=== PATIENT | male | born 1955 | race Caucasian/White ===

== ENCOUNTER 2019-10-05 09:22 | Outpatient (CLI) | payer BC, SELFPAY ==
--- NOTE | 2019-10-05 09:43 | CT_ITS ---
WS: [id number] CT CHEST, ABDOMEN AND PELVIS WITH CONTRAST HISTORY: MALIGNANT NEOPLASM OF LARGE INTESTINE TECHNIQUE: Contiguous 5 mm axial imaging performed through the chest, abdomen and pelvis with IV cont rast, oral contrast has been provided. Coronal and sagittal reformats chest. Coronal and sagittal ref ormats through the abdomen and pelvis. All CT scans at [facility] use at least one of the se dose optimization techniques: automated exposure control; mA and/or kV adjustment per patient size (includes targeted exams where dose is matched to clinical indication); or iterative reconstruction. CONTRAST: Omnipaque 300; 95 mL IV. DLP: 1259.58 mGy.cm COMPARISON: 09/06/2018 and 03/09/2018 and 09/07/[address]: Hyperinflated lungs. Long-term stability very small nodules in the RIGHT middle lobe and a calcified nodule in the LEFT upper lobe. There are no suspicious masses. Mild atherosclerosis aorta. Pulmonary artery size is normal. Mild coronary artery atherosclerosis. No pericardial or pleural effu sions. No mediastinal or hilar adenopathy. Abdomen CT: Normal size liver with diffuse hepatic steatosis. Prior cholecystectomy. Normal size sple en, pancreas and negative adrenal glands. Mild cortical thinning and perinephric stranding of each ki dney. No mass or obstruction. Mild atherosclerosis aorta. No mesenteric adenopathy or fluid. Pelvic CT: Mild diffuse constipation. Very mild persistent thickening of the ascending colon as seen on prior studies with no change. No adjacent adenopathy. No free fluid or adenopathy in the pelvis. N egative urinary bladder. Marked increase in thoracic kyphosis. No osteoblastic or osteolytic bone disease. CT/CT chest abd pel w con* IMPRESSION: 1. No evidence for metastatic disease to the chest, abdomen or pelvis. 2. Hepatic steatosis and prior cholecystectomy. 3. Mild wall thickening involving the ascending colon has been stable since 06/2017. 4. No adenopathy in the chest, abdomen or pelvis.
[2019-10-05] MEDS: iohexol 300 mg/mL 50 mL Btl PO (09:58)
[2019-10-05 10:20] LABS: Basophils # 0.1 10^3/uL (0.0-0.1); Basophils % 0.8 %; Eosinophils # 0.3 10^3/uL (0.0-0.8); Eosinophils % 3.6 %; Hematocrit 44.6 % (42.0-52.0); Hemoglobin 15.2 g/dL (11.7-16.6); Lymphocytes # 1.4 10^3/uL (0.8-4.8); Lymphocytes % 19.9 %; Mean Corpuscular HGB Conc 34.1 g/dL (30.0-36.0); Mean Corpuscular Hemoglobin 32.5 pg (28.0-34.0); Mean Corpuscular Volume 95.3 fL (80-94); Mean Platelet Volume 9.9 fL (7.4-10.4); Monocytes # 0.7 10^3/uL (0.2-0.9); Neutrophils # 4.7 10^3/uL (1.8-7.7); Neutrophils % 65.6 %; Nucleated Red Blood Cells % 0 %; Platelet Count 241 10^3/cmm (130-400); Red Blood Count 4.68 10^6/uL (4.1-5.3); Red Cell Distribution Width 11.5 % (12.1-15.1); White Blood Count 7.2 10^3/uL (4.0-10.0)
[2019-10-05 10:44] LABS: Carcinoembryonic Antigen 1.7 ng/mL (0.0-4.7)
[2019-10-05 10:55] LABS: Alanine Aminotransferase 31 U/L (0-41); Albumin Level 4.2 g/dL (3.5-5.2); Alkaline Phosphatase 115 IU/L (40-130); Anion Gap 18.2 (5-19); Aspartate Amino Transferase 31 U/L (0-40); Blood Urea Nitrogen 14 mg/dL (8-23); Calcium 9.9 mg/dL (8.5-10.5); Carbon Dioxide 22 mmol/L (22-29); Chloride 106 mmol/L (98-107); Globulin 3.6 g/dL (1.3-4.6); Glucose 106 mg/dL (65-115); Potassium 4.2 mmol/L (3.5-5.1); Sodium 142 mmol/L (136-145); Total Bilirubin 1.8 mg/dL (0.15-1.2); Total Protein 7.8 g/dL (6.6-8.7)
[2019-10-05] MEDS: iodixanol 320 mg/mL 100mL Btl IV (11:17)
== END 2019-10-05 09:23 | disposition home or self-care (01) ==
LOC: ONCMED 09:36
PROVIDERS: Family Provider Family Medicine; PCP Internal Medicine Medical Oncology; Visit Provider Internal Medicine Medical Oncology
DX: Z85.038 Personal history of other malignant neoplasm of large intestine (principal); K76.0 Fatty (change of) liver, not elsewhere classified; Z90.49 Acquired absence of other specified parts of digestive tract
CPT/HCPCS: 36415; 71260; 74177; 80053; 82378; 85025; Q9967

== ENCOUNTER 2019-10-11 09:31 | Outpatient (CLI) | payer BC, SELFPAY ==
--- NOTE | 2019-10-15 17:08 | ONC FU_ITS ---
Dr. Arnett Patient Follow-Up Note Patient: Gracie Amos Unit #: [id number]: 1955 Dicatated By: Carl Arnett M.D.Date of Visit:Oct 11, 2019 Onc Med Follow-up/Prog Note Chief Complaint: Colon cancer/anemia. History of Present Illness: This is a 64 year-old man with recurrent colon cancer, stage NATIVIDAD, completely resected. He had a known history of colon cancer. Unfortunately, I have had no records available. He was living in [place] at the time it was treated, which apparently was in 1997 or 1998. By his description, it sounds as though he had locally advanced disease, possibly T4 primary tumor, but no metastatic involvement. He underwent surgical resection followed by chemotherapy and radiation. He previously had no documented recurrence. Apparently his last colonoscopy there was somewhere around 2000. He had initially presented to Dr. Harmon with complaints of abdominal pain and fatigue. He apparently was anemic. According to Dr. Samuel's note, his hemoglobin was 7.9 g. He did have evaluation with CT abdomen/pelvis in May. That study showed surgical sutures in the descending colon near the junction with the sigmoid. In that area there was soft tissue thickening with mild stricture extending for 4.5 cm. This was suspicious for apple core type lesion and recurrent carcinoma. Also noted was a loop of small bowel in the right abdomen with marked thickening of the wall measuring up to 1.8 cm. That was felt to be possibly due to peristalsis. There was no associated obstruction. There was no other evidence of metastatic disease. I had seen him initially in June 2014. At that time his CBC still showed evidence of iron deficiency anemia with hemoglobin 8.6 g and hypochromic/microcytic red cell indices. His transferrin saturation was 2.5% and the ferritin level was 8.1 ng/mL. Comprehensive metabolic profile was unremarkable. His TSH was slightly high at 6.560 mIU per mL. Following that visit he had further evaluation with PET/CT which did show an apple core recurrence of colon cancer just below the sigmoid colonic anastomosis. Also noted was a 3.6 cm malignancy in the mid jejunum. There were no other areas of abnormal uptake on that study. He underwent upper and lower GI endoscopy on 07/05/14. The upper endoscopy did show evidence of gastritis, but no malignancy. The colonoscopy showed a partially obstructing medium sized fungating mass in the mid sigmoid colon. The mass was located right at the turn, and the scope was not able to be traversed beyond that area. Biopsy did confirm moderately differentiated infiltrating adenocarcinoma. He was given parenteral iron replacement with Venofer. He then underwent exploratory laparotomy on 08/09/14. He was noted to have an obvious mass involving the junction of the descending colon and proximal sigmoid colon. The mass was adherent to the abdominal sidewall. Also noted was a circumferential neoplasm in the small bowel approximately a foot distal to the ligament of Treitz. The mesentery in that area did not appear to contain any obvious disease, and there was no evidence of metastatic involvement in the liver or of carcinomatosis. He was incidentally noted to have a Meckel's diverticulum which was located in the area of 2 to 2-1/2 feet proximal to the ileocecal valve. The procedure included resection and reanastomosis of the proximal sigmoid colon, segmental small bowel resection of the proximal jejunum, resection of Meckel's diverticulum, and appendectomy. Pathology was consistent with recurrent, moderately differentiated adenocarcinoma of the colon. The tumor was invading through the muscularis propria into adjacent paracolonic fat. The mucosal margins were noted to be free of malignancy. One of 7 lymph nodes was involved with metastatic adenocarcinoma. It measured 1.1 cm. The small intestine showed invasive adenocarcinoma consistent with colonic primary. There was extension through the muscularis propria into the surrounding mesenteric fat. No lymph nodes were identified in that specimen. Margins were not reported. The Meckel's diverticulum and appendix showed benign pathology. I had seen him for a followup visit in August 2014. At that time he was having significant abdominal pain and xrays were suggestive of ileus or possible obstruction. He was admitted to the hospital. CT scans showed multiple fluid collections suggestive of possible abscesses. He improved on broadspectrum antibiotic coverage. I had subsequently seen him to discuss the possibility of adjuvant chemotherapy, as I felt he would be at high risk for further recurrence of his colon cancer. Since he had previously failed a standard 5-FU chemotherapy regimen, I did recommend that his treatment now include oxaliplatin. He had some reservations about attempting further chemotherapy, but ultimately he did agree, and he started his first cycle of treatment with oxaliplatin/Xeloda on 10/10/2014. That treatment was complicated by a hypersensitivity reaction to the oxaliplatin, which was severe enough that he required treatment in the emergency room. He did not take the 2 weeks of Xeloda. He restarted chemotherapy with single agent Xeloda on 10/31/2014. He completed 14 days of treatment. He did experience multiple toxicities including nausea, fatigue, and diarrhea. He did recover and after a one-week delay he did proceed with a second cycle of treatment. He tolerated it pretty well at a reduced dosage, and he was able to complete a 3rd cycle beginning on 12/24/2014. He had started a 4th cycle of treatment in the latter part of December, but he stopped taking it when he developed red blood in the stool. He said the bleeding lasted for about a week and then resolved. He chose not to have any evaluation for it. He indicated that he was under quite a bit of stress at that time. He also was having some diarrhea, but he was not having mouth sores or other obvious chemotherapy related side effects. He restarted his fourth cycle of chemotherapy on 02/06/2015, and he apparently did complete that treatment. His 5th cycle, though, was delayed, as he had reported multiple complaints at the time of that visit. He had a restaging PET/CT on 03/16/2015. It showed no evidence of residual or recurrent disease, and he continued treatment. As of April 2015 he had completed 6 cycles of adjuvant chemotherapy with Xeloda. He was then followed on observation/expectant management. His medical illnesses otherwise have been limited to hypertension, borderline diabetes, and chronic kidney disease. He has a history of smoking cigarettes during his teenage years, but since then he is just smokes cigars occasionally. He does chew small amount of tobacco daily. INTERIM HISTORY: He had an unremarkable surveillance colonoscopy in August 2015. His surveillance CT scans in February 2016 and in February 2017 showed no evidence of recurrent or metastatic disease. Surveillance CT of the chest, abdomen, and pelvis on 09/07/2017 showed stable appearance of the lungs. There were postsurgical changes in the small bowel. Prominent soft tissue thickening involving the cecum and ascending colon was nonspecific, but recurrent neoplasm was not excluded. There was otherwise no evidence of recurrent or metastatic disease. Surveillance CT scans on 03/09/2018 and on 09/06/2018 showed no evidence of recurrent or metastatic disease in the chest, abdomen, or pelvis. He continued on observation/expectant management. He had a negative surveillance colonoscopy with Dr. Samuel in October 2018. Surveillance CT scans on 10/05/2019 showed no evidence of metastatic disease in the chest, abdomen, or pelvis. There was evidence of hepatic steatosis. Mild wall thickening involving the ascending colon appeared stable. There were no other abnormal findings. He is seen for a scheduled visit. He has been feeling good generally. He has pretty good energy and he has normal activity. ECOG score is 0. He has good appetite and his weight has been stable. He has no fever or night sweats. He has no shortness of breath, cough, or chest pain. He currently has no GI or complaints. He has been having some pain in his left ankle. He also has some joint pain in his fingers and knees. Says he is not having too many headaches now. He does not complain of dizziness. He has no focal neurologic symptoms. Medications: Olmesartan Medoxomil 1 Tablet (of 20 mg) Oral daily, RaNITidine HCl 1 (150 mg) Tablet Oral daily PRN Allergies: Oxaliplatin Review of Systems: Constitutional - His energy is pretty good. He has normal activity. Appetite is good and weight is stable. No fever, chills, hot flashes, or night sweats. ECOG score is 0, ENMT - Lately has had some nasal/sinus stuffiness. No mouth sores. No sore throat or difficulty swallowing, Hematologic/Lymphatic - He bruises easily, Respiratory - No shortness of breath. No cough. No pleuritic pain or hemoptysis, Cardiovascular - No angina pain. No palpitations, Gastrointestinal - No nausea or vomiting. His acid reflux is managed adequately with medication. No diarrhea or constipation. No blood in the stool or black stools, Genitourinary (M) - No dysuria or hematuria. No urinary frequency. No urgency or incontinence, Musculoskeletal - He has some joint pain in his fingers and in his knees, Integumentary - No skin complications, Neurologic - He is not having too many headaches. He does not complain of dizziness. He has no numbness/paresthesia or other focal neurologic symptoms, Psychiatric - He has restless sleep. No anxiety or depression. Vital Signs: Performed on Oct 11, 2019 10:01 Height - 71.00 in Weight - 185.8 lbs (LOW) BSA - 2.04 sq.m BMI - 25.91 Temperature - 98.0 F (LOW) Pulse - 61 /min Respiration - 18 /min BP - 134/86 mm(hg) O2 Sat - 98 % Pain - 3 Physical Examination: Constitutional - He looks pretty good generally, Eyes - Sclerae nonicteric. Conjunctivae clear, ENMT - No lesions noted in the oral cavity, Hematologic/Lymphatic - No cervical, clavicular, or axillary adenopathy, Respiratory - Lungs are clear, Cardiovascular - Heart rhythm is regular. There is no murmur, gallop, or rub noted, Abdomen - Soft. He has mildly tender in the left lower quadrant. Liver and spleen are not enlarged. There is no abdominal mass or ascites noted and there is no inguinal adenopathy, Extremities - No edema. Pedal pulses are palpable bilaterally, Integumentary - He has a chronic erythematous eruption in the facial area, Neurologic - No focal neurologic deficits noted. Lab/Imaging: Test performed on Oct 05, 2019 10:11 Sodium 142 mmol/L Potassium 4.2 mmol/L Chloride 106 mmol/L CO2 22 mmol/L Anion Gap 18.2 BUN 14 mg/dL Creatinine 1.6 mg/dL Cr Clearance (Est) 58.8500 mL/min eGFR 44.0 mL/min Glucose 106 mg/dL Calcium 9.9 mg/dL Protein, Total 7.8 g/dL Albumin 4.2 g/dL Globulin 3.6 g/dL Bilirubin, Total 1.8 mg/dL ALT (SGPT) 31 U/L AST (SGOT) 31 U/L Alkaline Phosphatase 115 IU/L WBC 7.2 10 3/uL RBC 4.68 10 6/uL HGB 15.2 g/dL HCT 44.6 % MCV 95.3 fL MCH 32.5 pg MCHC 34.1 g/dL RDW 11.5 % Platelet Count 241 10 3/cmm MPV 9.9 fL Neutrophils 4.7 10 3/uL Lymphocytes 1.4 10 3/uL Monocytes 0.7 10 3/uL Eosinophils 0.3 10 3/uL Basophils 0.1 10 3/uL Neutrophil % 65.6 % Lymphocyte % 19.9 % Monocyte % 10.0 % Eosinophil % 3.6 % Basophils % 0.8 % CEA 1.7 ng/mL Impression: 1. Patient with recurrent colon cancer with involvement at the junction of the descending colon and proximal sigmoid colon. There was an additional site of involvement in the jejunum, which appeared to have been a metastasis as opposed to a direct extension of the primary tumor. There was no other obvious metastatic involvement by gross visualization at surgery or by PET/CT. 2. He underwent exploratory laparotomy with resection and reanastomosis of the proximal sigmoid colon and segmental small bowel resection of the proximal jejunum on 08/09/2014. His disease was stage NATIVIDAD, but completely resected. 3. A course of adjuvant chemotherapy with oxaliplatin/Xeloda was initiated on 10/10/2014. He unfortunately experienced a hypersensitivity type reaction to the initial dose of oxaliplatin. He recovered uneventfully after treatment in the emergency room. 4. He subsequently continued adjuvant chemotherapy with single agent Xeloda. He experienced multiple toxicities with his first cycle of treatment, but he recovered uneventfully and he was then able to tolerate treatment at a reduced dosage. A restaging PET/CT on 03/16/2015 showed no evidence of residual or recurrent disease. As of April 2015 had had completed 6 cycles of treatment. His other medical illnesses include: 5. Hypertension. 6. Borderline diabetes. 7. Chronic kidney disease. He has continued observation following completion of adjuvant chemotherapy. Thus far during followup there has been no evidence of recurrence of his colon cancer. Plan: He remains on observation/expectant management for the colon cancer. I will see him again in one year. Signed By: Carl Arnett M.D. <<Signature on File>>
== END 2019-10-11 09:32 | disposition home or self-care (01) ==
LOC: ONCMED 09:31
PROVIDERS: Family Provider Family Medicine; PCP Family Medicine; Visit Provider Internal Medicine Medical Oncology
DX: Z08 Encounter for follow-up examination after completed treatment for malignant neoplasm (principal); Z85.038 Personal history of other malignant neoplasm of large intestine; E11.22 Type 2 diabetes mellitus with diabetic chronic kidney disease; I12.9 Hypertensive chronic kidney disease with stage 1 through stage 4 chronic kidney disease, or unspecified chronic kidney disease; N18.9 Chronic kidney disease, unspecified; F17.220 Nicotine dependence, chewing tobacco, uncomplicated; K76.0 Fatty (change of) liver, not elsewhere classified; Z79.899 Other long term (current) drug therapy; Z92.21 Personal history of antineoplastic chemotherapy; Z92.3 Personal history of irradiation; Z90.49 Acquired absence of other specified parts of digestive tract
CPT/HCPCS: G0463

== ENCOUNTER 2020-11-25 11:26 | Outpatient (CLI) | payer BC, SELFPAY ==
--- NOTE | 2020-11-25 11:37 | CT_ITS ---
WS: [id number] CT CHEST, ABDOMEN, AND PELVIS TECHNIQUE: Contrast-enhanced CT of the chest, abdomen, and pelvis with coronal and sagittal reformatt ed images. CLINICAL INFORMATION: COLON CANCER COMPARISON: Multiple prior CTs including September 2019, August 2018, February 2018, and August 2017. DLP: 1400.[address] scans at use at least one of these dose optimization techniques: automat ed exposure control; mA and/or kV adjustment per patient size (includes targeted exams where dose is matched to clinical indication); or iterative reconstruction. CT CHEST: Hyperinflation. Lungs are well aerated. Calcified granulomas. No suspicious pulmonary parenchymal [place] cities. No acute pulmonary infiltrates. No focal pneumonia or pleural fluid. Long-term stability of a few tiny noncalcified nodules in the right middle lobe. Normal caliber thoracic aorta. No mediastinal or hilar lymphadenopathy. No axillary lymphadenopathy. Thoracic kyphosis with ankylosis. CT ABDOMEN AND PELVIS: Diffuse fatty infiltration of the liver. Cholecystectomy clips. Normal spleen. Normal GE junction. No rmal pancreas. Normal caliber abdominal aorta. Adrenal glands are normal. Bilateral renal cortical at rophy. No hydronephrosis. Normal bilateral renal parenchymal enhancement. No evidence of small or lar ge bowel obstruction. Normal sigmoid colon. No adenopathy in the abdomen or pelvis. No inguinal lymph adenopathy. Normal lumbar spine. CT/CT chest abd pel w con* IMPRESSION: 1. No evidence of metastatic disease in the chest abdomen or pelvis. 2. Diffuse fatty infiltration of the liver. 3. Prior cholecystectomy. 4. No adenopathy in the chest abdomen or pelvis. 5. Mild wall thickening ascending colon is unchanged since 2017 6. Thoracic kyphosis with ankylosis.
[2020-11-25 12:39] LABS: Blood Urea Nitrogen 14 mg/dL (8-23); Glomerular Filtration Rate 51.2 mL/min (90-130)
[2020-11-25] MEDS: iohexol 300 mg/mL 50 mL Btl IV (13:03)
[2020-11-25] MEDS: iodixanol 320 mg/mL 100mL Btl IV (13:04)
== END 2020-11-25 11:27 | disposition home or self-care (01) ==
LOC: CT 11:31
PROVIDERS: Visit Provider Internal Medicine Medical Oncology
DX: C18.7 Malignant neoplasm of sigmoid colon (principal); K76.0 Fatty (change of) liver, not elsewhere classified; Z90.49 Acquired absence of other specified parts of digestive tract; M40.294 Other kyphosis, thoracic region
CPT/HCPCS: 36415; 71260; 74177; 82565; 84520